=== PATIENT | female | born 1990 | race Caucasian/White ===

== ENCOUNTER 2025-08-10 08:07 | Emergency (ER) | payer OTHER ==
[~2025-08-10] VITALS: Ht 167.6 cm; Wt 63.0 kg
[2025-08-10] MEDS ORDERED: NITR-67 PO (08:16)
[2025-08-10 08:41] LABS: BASO # 0.0 10^3/uL (0.0-0.2); BASO % 0.4 % (0.0-1.0); EOS # 0.1 10^3/uL (0.0-0.5); EOS % 1.4 % (0.0-3.0); LYMPH # 1.9 10^3/uL (1.5-5.0); LYMPH % 38.0 % (24.0-44.0); MONO # 0.6 10^3/uL (0.0-0.8); MONO % 12.1 % (2.0-8.0); NEUTROPHILS # 2.4 10^3/uL (1.5-8.5); NEUTROPHILS % 47.9 % (36.0-66.0); PLATELET COUNT, AUTOMATED 308 10^3/uL (150-450)
[2025-08-10 09:09] LABS: HCG, SERUM QUALITATIVE NEGATIVE (NEGATIVE)
[2025-08-10 09:10] LABS: ALT/SGPT 28 U/L (7.0-40); AST/SGOT 27 U/L (<34); CALCIUM LEVEL 9.0 MG/DL (8.5-10.1); CARBON DIOXIDE LEVEL 27 MMOL/L (20-31); CHLORIDE LEVEL 103 MMOL/L (98-107); CREATININE FOR GFR 0.66 MG/DL (0.55-1.30); GLOMERULAR FILTRATION RATE > 90.0 (>60); POTASSIUM SERUM 3.7 MMOL/L (3.5-5.1); SODIUM LEVEL 142 MMOL/L (136-145)
[2025-08-10] MEDS: NS (Normal Saline) 0.9% 1,000 ML IV ONE (12:14)
[2025-08-10] MEDS: KETOROLAC 30 MG/ML 1 ML VIAL IV ONE (12:14)
[2025-08-10] MEDS ORDERED: KETO-204 PO (13:22)
[2025-08-10] MEDS ORDERED: ACYC1CAP20 PO (13:22)
[2025-08-10 13:40] VITALS: BP 107/65; TEMP 98.2; O2SAT 98
== END 2025-08-10 13:49 | disposition home or self-care (01) ==
LOC: M ED 08:07
DX: U07.1 COVID-19 (principal); R10.13 Epigastric pain; G43.909 Migraine, unspecified, not intractable, without status migrainosus
CPT/HCPCS: 76705; 80053; 83690; 84703; 85025; 87486; 87581; 87633; 87798; 96374; 99284; J1885